=== PATIENT | female | born 1965 | race Caucasian/White ===

== ENCOUNTER → 2018-02-02 | Outpatient (CLI) | payer OTHER ==
[~2018-02-02] MED LIST: CALCIT950 PO; CHOL10002; CYAN100 PO; Daily Multiple1 EACH PO; Prilosec Otc20 MG PO; Super B With V1 EACH PO; Zofran Odt4 MG PO
[2018-02-06 15:07] LABS: HPV 16 Negative (Negative); HPV 18 Negative (Negative); HPV OTHER HR TYPES Negative (Negative)
== END | disposition home or self-care (01) ==
LOC: LAB SHORT 10:33 → LAB 10:33
PROVIDERS: Obstetrics & Gynecology
DX: Z01.419 Encounter for gynecological examination (general) (routine) without abnormal findings (principal)
CPT/HCPCS: 87624; G0123

== ENCOUNTER 2019-01-14 08:17 | Day surgery (SDC) | payer OTHER ==
[~2019-01-14] VITALS: Ht 180.3 cm; Wt 115.2 kg
[~2019-01-14 08:17] MED LIST changes: +MIRENA1 EACH
--- NOTE | 2019-01-14 09:11 | NUR ---
01/14/19 0911 Meryl Parks 1 IV MISS IN RH BY ALYSA VALVE Q IV MISS IN RH BY ALYSA VALVE 1 GOOD IV IN RAC BY ALYSA PT TOW
== END 2019-01-14 10:17 | disposition home or self-care (01) ==
LOC: ORSCSDS 08:17
PROVIDERS: Internal Medicine Gastroenterology
PROC: 0DBP8ZX Excision of Rectum, Via Natural or Artificial Opening Endoscopic, Diagnostic (ICD-10-PCS; principal; 2019-01-14 09:30)
DX: Z12.11 Encounter for screening for malignant neoplasm of colon (principal); K62.1 Rectal polyp; K64.8 Other hemorrhoids; K57.30 Diverticulosis of large intestine without perforation or abscess without bleeding; Z98.84 Bariatric surgery status; E66.01 Morbid (severe) obesity due to excess calories; Z68.37 Body mass index [BMI] 37.0-37.9, adult
CPT/HCPCS: 88305; J2704; J7120